=== PATIENT | male | born 1955 | race Caucasian/White ===

== ENCOUNTER 2024-03-16 04:34 | Day surgery (SDC) | payer OTHER, MEDICARE ==
[2024-03-13 10:22] VITALS: BMI 24.3
[2024-03-16] MEDS ORDERED: MIDAZOLAM HCL 2 MG/2 ML SINGLE DOSE VIAL ONE (14:17)
[2024-03-16] MEDS ORDERED: SUCCINYLCHOLINE CHLORIDE 200 MG/10 ML SYRINGE ONE (14:20)
[2024-03-16] MEDS ORDERED: PROPOFOL 40 ML ONE (14:20)
[2024-03-16] MEDS ORDERED: GENTAMICIN SO4 80 MG/2 ML VIAL ONE (14:27)
[2024-03-16] MEDS: ceFAZolin SODIUM 1 GM VIAL IVPB ONE ×2 (14:30)
[2024-03-16] MEDS: GENTAMICIN SO4 80 MG/2 ML VIAL IVPB ONE (14:30)
[2024-03-16] MEDS ORDERED: oxyCODONE HCL 5 MG TABLET PO PRN (15:55)
[2024-03-16] MEDS ORDERED: LACTATED RINGERS SOLUTION 1,000 ML IV SCH (16:00)
[2024-03-16] MEDS: ACETAMINOPHEN 1000 MG/100 ML BAG IVPB ONE (16:07)
[2024-03-16 17:06] VITALS: RESP 18
[2024-03-16 18:35] VITALS: BP 158/80; PULSE 51; TEMP 97.1
== END 2024-03-16 18:35 | disposition home or self-care (01) ==
LOC: JASU-SURG 04:34
PROVIDERS: ATTEND Urology
PROC: 0TC08ZZ Extirpation of Matter from Right Kidney, Via Natural or Artificial Opening Endoscopic (ICD-10-PCS; principal; 2024-03-16 14:00)
PROC: 0T768DZ Dilation of Right Ureter with Intraluminal Device, Via Natural or Artificial Opening Endoscopic (ICD-10-PCS; 2024-03-16 14:00)
PROC: BT1DYZZ Fluoroscopy of Right Kidney, Ureter and Bladder using Other Contrast (ICD-10-PCS; 2024-03-16 14:00)
DX: N20.0 Calculus of kidney (principal)
CPT/HCPCS: 76000-TC-FY; 94760; C1758; C2617; J0131

== ENCOUNTER 2024-05-11 04:14 | Day surgery (SDC) | payer OTHER, MEDICARE ==
[2024-05-07 13:02] VITALS: BMI 23.6
[2024-05-11] MEDS ORDERED: PROPOFOL 40 ML ONE (08:21)
[2024-05-11 11:03] VITALS: RESP 20; TEMP 97.3
[2024-05-11 11:20] VITALS: BP 125/74; PULSE 70
== END 2024-05-11 10:36 | disposition home or self-care (01) ==
LOC: JASU-SURG 04:14
PROVIDERS: ATTEND Urology
PROC: 0TF3XZZ Fragmentation in Right Kidney Pelvis, External Approach (ICD-10-PCS; principal; 2024-05-11 09:30)
DX: N20.0 Calculus of kidney (principal)

== ENCOUNTER 2024-07-06 04:26 | Day surgery (SDC) | payer OTHER, MEDICARE ==
[2024-07-03 14:24] VITALS: BMI 24.1
[2024-07-06] MEDS ORDERED: MIDAZOLAM HCL 2 MG/2 ML SINGLE DOSE VIAL ONE (13:56)
[2024-07-06] MEDS ORDERED: PROPOFOL 20 ML ONE ×2 (13:56→14:13)
[2024-07-06 16:05] VITALS: BP 112/64; PULSE 58; RESP 20; TEMP 97.3
== END 2024-07-06 15:57 | disposition home or self-care (01) ==
LOC: JASU-SURG 04:26
PROVIDERS: ATTEND Urology
PROC: 0TF3XZZ Fragmentation in Right Kidney Pelvis, External Approach (ICD-10-PCS; principal; 2024-07-06 14:00)
DX: N20.0 Calculus of kidney (principal)